=== PATIENT | female | born 1940 | race Caucasian/White ===

== ENCOUNTER 2025-01-19 14:11 | Inpatient (IN) ==
[2025-01-19 15:24] LABS: Hematocrit (blood only) 39.3 % (37.0-47.0); Hemoglobin 12.8 g/dL (12.0-16.0); Mean Corpuscular Hemoglobin 29.3 pg (25.0-34.0); Mean Corpuscular Volume 89.9 fL (80.0-100.0); Platelet Count 249 K/uL (130-400); RDW Standard Deviation 48.9 fL (36.4-46.3); Red Blood Count 4.37 M/uL (4.20-5.40); White Blood Count 13.78 K/ul (4.8-10.8)
--- NOTE | 2025-01-19 15:32 | XRay Report ---
SINGLE VIEW CHEST CLINICAL HISTORY: Dyspnea FINDINGS: An AP upright chest radiograph is compared to study dated 01/09/2025. The heart is enlarged . There is prominence of the pulmonary vasculature. Chronic interstitial thickening is similar to pre vious. Scarring/atelectasis is seen at the lung bases. No airspace consolidation or large pleural eff usion is identified. No pneumothorax is seen. The skeletal structures are osteopenic. The bony thorax is grossly intact. IMPRESSION: 1. Cardiomegaly with prominence of the pulmonary vasculature. Correlate clinically for evidence of fl uid overload/congestive change. 2. No airspace consolidation or pleural effusion is seen. ACT 112: Negative or not required by law. Electronically signed by: Zak Blake M.D. 01/19/2025 3:31 PM
[2025-01-19 15:42] LABS: Alanine Aminotransferase 30 U/L (7-52); Albumin Globulin Ratio 1.2 (0.9-2); Albumin Level 3.8 gm/dl (3.4-5.0); Alkaline Phosphatase 53 U/L (34-104); Anion Gap 8 (3-11); Bilirubin,Total 0.9 mg/dl (0.2-1.0); Blood Urea Nitrogen 32 mg/dl (6-23); Calcium 9.7 mg/dl (8.6-10.3); Carbon Dioxide 21 mmol/L (21-32); Chloride 107 mmol/L (98-107); Globulin 3.3 gm/dl (2.5-4.0); Glucose 107 mg/dl (70-99(Fasting)); Magnesium 2.1 mg/dl (1.7-2.4); Potassium 5.4 mmol/L (3.5-5.1); Sodium 136 mmol/L (136-145); Total Protein 7.1 gm/dl (6.0-8.3)
[2025-01-19 15:50] LABS: Immature Granulocytes # (auto) 0.08 K/uL (0.01-0.20); Immature Granulocytes % (auto) 0.6 %; Polychromasia 1+
[2025-01-19 16:15] LABS: Chlamydia pneumoniae PCR Not Detected (NotDetected); Coronavirus 229E PCR Not Detected (NotDetected); Coronavirus CoV-2 (COVID19)PCR Not Detected (NotDetected); Coronavirus HKU1 PCR Not Detected (NotDetected); Coronavirus NL63 PCR Not Detected (NotDetected); Coronavirus OC43PCR Not Detected (NotDetected); Human Metapneumovirus PCR Not Detected (NotDetected); Parainfluenza Virus 1 PCR Not Detected (NotDetected); Parainfluenza Virus 2 PCR Not Detected (NotDetected); Parainfluenza Virus 3 PCR Not Detected (NotDetected); Parainfluenza Virus 4 PCR Not Detected (NotDetected); Respiratory Syncytial VirusPCR Not Detected (NotDetected); Rhinovirus/Enterovirus PCR Not Detected (NotDetected)
--- NOTE | 2025-01-19 16:34 | Emergency Department Note ---
Impression & Plan Acute dyspnea, CHF exacerbation, Acute hyperkalemia, GALINA (acute kidney injury), Generalized weakness ED Provider Note HISTORY OF PRESENT ILLNESS: Patient is an 84-year-old female presenting with shortness of breath and generalized weakness. Patient reports that for the last few days she has been having Pressly worsening shortness of breath, most notably with exertion. She reports that she is unable to take more than a few steps at a time before she has to stop because she becomes so winded. States that she has been very tired and feeling rundown. Reports she is unable to stand up for too long because her legs "start feeling like noodles." She states she also gets very dizzy and lightheaded like she is going to pass out. Denies any chest pain. She denies any notable fevers or chills. She does report some dysuria and is concerned she might be having a UTI. She states that she was cardioverted yesterday and does not feel any better. ROS: as above PHYSICAL EXAM: Constitutional: Patient appears in no acute distress. HENT: Head: Normocephalic and atraumatic. Eyes: EOMI, PERRL Mouth/Throat: Mucous membranes moist. Neck: Trachea midline. Neck supple. Cardiovascular: Tachycardic with irregularly irregular rhythm. No murmurs, rubs or gallops. Intact distal pulses. Pulmonary/Chest: No respiratory distress. Breath sounds clear and equal bilaterally. No wheezes or rales. Conversationally dyspneic. Abdominal: Abdomen soft, no tenderness, rebound or guarding. Musculoskeletal: No edema, tenderness or deformity noted. Skin: Warm and dry. No rash, erythema, pallor or cyanosis Psychiatric: Appropriate mood and affect for situation. Neurological: Alert and keenly responsive. CN II-XII grossly intact, moving all extremities equally and fully. MDM: - Vitals signs showed tachycardia - History obtained via patient. History as above. - Chronic conditions affecting care: HTN; HLD; hypothyroidism; paroxysmal Afib - Differential diagnoses include, but are not limited to: Congestive heart failure; acute coronary syndrome; COPD/asthma exacerbation; pulmonary edema; pulmonary embolism; pneumonia; pneumothorax; viral syndrome - Order placed for continuous cardiac monitoring. At this time, monitor showed rate of 99 bpm with irregular rhythm, per my interpretation. - External medical records reviewed. Cardioversion note from 01/18/2025 was reviewed. Patient was cardioverted due to persistent A-fib. - EKG image interpreted by myself showed atrial fibrillation. Rate 103 bpm. QT 326. No acute ischemic changes. - Laboratory workup interpreted by myself showed leukocytosis (WBC 13.78) with neutrophil predominance; hyperkalemia (K 5.4); GALINA (Cr 1.35); elevated BNP (1142); slightly elevated AST (44) - Viral respiratory panel negative - CXR reviewed by myself shows pulmonary vascular congestion, per my interpretation. - Given 20 mg IV lasix. - Discussion was had with nurse case manager about patient's case and need for admission - Hospitalist consulted for admission - Patient admitted to [facility] service for further evaluation and management. ASSESSMENT AND PLAN: Diagnosis: Acute dyspnea; CHF exacerbation; GALINA; acute hyperkalemia; generalized weakness Plan: admit Past Med/Surg History Problem List (Updated 01/19/25 @ 17:07 by Jonelle Beard MD) Generalized weakness (Acute) GALINA (acute kidney injury) (Acute) Acute hyperkalemia (Acute) CHF exacerbation (Acute) Acute dyspnea (Acute) Cardiomyopathy Chest pain (Acute) Chronic diarrhea Hypersomnia Insomnia Neck mass Hemorrhoids Dehydration Urinary symptom or sign Viral gastroenteritis Hypokalemia Paroxysmal A-fib Pain of left calf On warfarin for atrial fibrillation Family history of coronary artery disease in sister Dyspnea on exertion Encounter for examination following treatment at hospital Fatigue Urinary tract infection Vaginal itching COVID-19 (Acute) Osteoporosis Depression with anxiety Routine health maintenance Hypothyroid Hyperlipidemia HTN (hypertension), benign Medical History Slow to wake up after anesthesia Neck mass "just a little lump on my neck, dr plans to keep an eye on it" Fatigue "tired all the time" History of COVID-19 2021, no residual symptoms Hx of diarrhea "wears pull-ups all the time due to her diarrhea" Paroxysmal atrial fibrillation f/u mn cardio Osteoporosis On warfarin for atrial fibrillation Hypothyroidism Hx of hypokalemia Hx of insomnia HLD (hyperlipidemia) HTN (hypertension), benign Hx of hemorrhoids Depression with anxiety H/O chronic kidney disease H/O diabetes mellitus diet controlled; "when she was ill with sepsis she had to be on insulin while in hospital, but was not sent home with it, diet controlled since" H/O sepsis age 79, hospitalized while living in [place], 2/2 to UTI Surgical History Hx of oral surgery many years ago, "just one one tooth only" Hx of colonoscopy (2005) Hx of bilateral cataract extraction History of tonsillectomy and adenoidectomy H/O hand surgery H/O foot surgery Hx of cholecystectomy Hx of appendectomy Family History Brother Diabetes Hypertension Myocardial infarction Mother Hypertension Myocardial infarction Father Hypertension Myocardial infarction Brother Myocardial infarction Sister Myocardial infarction Sister Myocardial infarction Denies family history of Ovarian cancer Prostate cancer Breast cancer Colorectal cancer Social History Smoking Status: Former smoker Tobacco Type: Cigarettes Age Started Using Tobacco: 23; Age Quit Using Tobacco: 40; packs per day: 1; Second Hand Exposure: No; Do You Dip or Chew Tobacco: No; Hx Alcohol Use: No Hx Substance Use: No Preferred Language: Frisian Communication Ability: Effective Visual Impairment: Limited Hearing Ability: Normal Seal Skinner Required: No Beliefs That Will Affect Care: None marital status: / Current Living Situation: Alone current occupational status: retired How many Children do You have: 2 Feels Safe at Home: Yes Childhood Exposure to Second-Hand Smoke: No Diet: regular caffeine: Yes (tea and diet coke) during the past year weight has: remained stable Dental Care, Regularly: No Physical Activity Frequency: 1-2 Times per Week Physical Activity Frequency Comment: walking daily Seatbelt Use: always Sunscreen Use: No Do you think of yourself as: straight/heterosexual Sexual Activity: has been sexually active, but not for at least 12 months Gender Identity: Female Assistive Devices: Denture - Upper and Glasses Allergies Allergies Allergy/AdvReac Type Severity Reaction Status Date / Time Barbiturates Allergy Unknown Unknown Verified 01/15/25 10:32 meprobamate Allergy Unknown Verified 01/15/25 10:32 Home Meds Home Medications Medication Instructions Recorded Confirmed ferrous sulfate 325 mg (65 mg 325 mg PO QAM 06/29/24 01/19/25 iron) tablet cholecalciferol (vitamin D3) 25 25 mcg PO QAM 11/01/24 01/19/25 mcg (1,000 unit) capsule (Vitamin D3) cyanocobalamin (vitamin B-12) 5,000 mcg sublingual QAM 11/01/24 01/19/25 5,000 mcg sublingual tablet (Vitamin B-12) levothyroxine 112 mcg tablet 112 mcg PO QAM 11/01/24 01/19/25 paroxetine HCl 10 mg tablet 10 mg PO QAM 11/01/24 01/19/25 Previous Rx's Medication Instructions Recorded chlorthalidone 50 mg tablet 50 mg PO 2XWK #30 tabs 03/14/24 hydroxyzine HCl 10 mg tablet 10 mg PO HS PRN insomnia #30 tabs 10/17/24 melatonin 10 mg capsule 10 mg PO HS #90 caps 10/26/24 warfarin 2.5 mg tablet 2.5 mg PO .COMPLEX #36 tabs 10/26/24 warfarin 7.5 mg tablet 7.5 mg PO DAILY #90 tabs 10/26/24 alendronate 70 mg tablet 70 mg PO Q7D #12 tabs 11/20/24 furosemide 20 mg tablet 20 mg PO DAILY #7 tabs 01/09/25 metoprolol succinate 50 mg 50 mg PO DAILY #30 tabs 01/15/25 tablet,extended release 24 hr potassium chloride 20 mEq 40 meq (2 x 20 mEq) PO BID #360 01/15/25 tablet,extended release tabs Results & Data (ED) Vital Signs Vital Signs - 24 hr 01/19/25 14:17 01/19/25 16:13 01/19/25 16:13 Temperature 36.5 C Temperature Source Temporal Artery Scan Pulse Rate 94 H Pulse Rate [Finger] Respiratory Rate 18 Respiratory Effort / Characteristics Non-Labored Spontaneous Non-Labored Spontaneous Respiratory Depth Normal Respiratory Pattern Regular Blood Pressure 101/65 Blood Pressure [Left Arm] Blood Pressure Mean 77 Blood Pressure Mean [Left Arm] Blood Pressure Position Sitting Blood Pressure Position [Left Arm] Pulse Oximetry 96 95 Oxygen Delivery Method Room Air Room Air Room Air Sepsis Recent Fever Within 48 Hours No Sepsis New/Unexplained Change in Mental Status No Sepsis Action Taken by Nursing No Action Required 01/19/25 16:15 01/19/25 16:39 Temperature Temperature Source Pulse Rate 99 H Pulse Rate [Finger] 123 H Respiratory Rate 22 Respiratory Effort / Characteristics Non-Labored Spontaneous Respiratory Depth Normal Respiratory Pattern Regular Blood Pressure Blood Pressure [Left Arm] 106/82 Blood Pressure Mean Blood Pressure Mean [Left Arm] 90 Blood Pressure Position Blood Pressure Position [Left Arm] Sitting Pulse Oximetry 95 Oxygen Delivery Method Room Air Sepsis Recent Fever Within 48 Hours Sepsis New/Unexplained Change in Mental Status Sepsis Action Taken by Nursing Laboratory Data 01/19/25 15:05 01/19/25 15:05 Lab Results 01/19/25 01/19/25 Range/Units 15:05 16:20 WBC 13.78 H (4.8-10.8) K/ul RBC 4.37 (4.20-5.40) M/uL Hgb 12.8 (12.0-16.0) g/dL Hct 39.3 (37.0-47.0) % MCV 89.9 (80.0-100.0) fL MCH 29.3 (25.0-34.0) pg MCHC 32.6 (32.0-36.0) g/dL RDW Std Deviation 48.9 H (36.4-46.3) fL RDW Coeff of Kunal 14.8 H (11.5-14.5) % Plt Count 249 (130-400) K/uL MPV 10.5 (9.4-12.4) fL Immature Gran % (Auto) 0.6 % Neut % (Auto) 52.8 % Lymph % (Auto) 38.2 % White % (Auto) 7.1 % Eos % (Auto) 0.6 % Baso % (Auto) 0.7 % Neut # (Auto) 7.27 H (1.40-6.50) K/uL Lymph # (Auto) 5.27 H (1.20-3.40) K/uL White # (Auto) 0.98 H (0.11-0.59) K/uL Eos # (Auto) 0.08 (0.00-0.50) K/uL Baso # (Auto) 0.10 (0.00-0.20) K/uL Immature Gran # (Auto) 0.08 (0.01-0.20) K/uL Polychromasia 1+ Sodium 136 (136-145) mmol/L Potassium 5.4 H (3.5-5.1) mmol/L Chloride 107 (98-107) mmol/L Carbon Dioxide 21 (21-32) mmol/L Anion Gap 8 (3-11) BUN 32 H (6-23) mg/dl Creatinine 1.35 H (0.6-1.2) mg/dl Est Cr Clr Drug Dosing Not Reportable eGFR 38.99 BUN/Creatinine Ratio 23.7 H (10-20) Glucose 107 H (70-99(Fasting)) mg/dl Calcium 9.7 (8.6-10.3) mg/dl Magnesium 2.1 (1.7-2.4) mg/dl Total Bilirubin 0.9 (0.2-1.0) mg/dl AST 44 H (13-39) U/L ALT 30 (7-52) U/L Alkaline Phosphatase 53 (34-104) U/L B-Natriuretic Peptide 1142 H (0-100) pg/ml Total Protein 7.1 (6.0-8.3) gm/dl Albumin 3.8 (3.4-5.0) gm/dl Globulin 3.3 (2.5-4.0) gm/dl Albumin/Globulin Ratio 1.2 (0.9-2) Adenovirus (PCR) Not Detected (NotDetected) B. pertussis DNA (PCR) Not Detected (NotDetected) B.parapertussis DNA PCR Not Detected (NotDetected) C. pneumoniae DNA (PCR) Not Detected (NotDetected) Coronavirus OC43 (PCR) Not Detected (NotDetected) Coronavirus HKU1 (PCR) Not Detected (NotDetected) Coronavirus 229E (PCR) Not Detected (NotDetected) SARS-CoV-2 (PCR) Not Detected (NotDetected) Coronavirus NL63 (PCR) Not Detected (NotDetected) Human Metapneumovir PCR Not Detected (NotDetected) Influenza Type A (PCR) Not Detected (NotDetected) Influenza Type B (PCR) Not Detected (NotDetected) M. pneumoniae (PCR) Not Detected (NotDetected) Parainfluenza 1 (PCR) Not Detected (NotDetected) Parainfluenza 2 (PCR) Not Detected (NotDetected) Parainfluenza 3 (PCR) Not Detected (NotDetected) Parainfluenza 4 (PCR) Not Detected (NotDetected) RSV (PCR) Not Detected (NotDetected) Entero/Rhino (PCR) Not Detected (NotDetected) Imaging Data Radiologist's Impression: Chest X-Ray 01/19/25 14:21 SINGLE VIEW CHEST CLINICAL HISTORY: Dyspnea FINDINGS: An AP upright chest radiograph is compared to study dated 01/09/2025. The heart is enlarged. There is prominence of the pulmonary vasculature. Chronic interstitial thickening is similar to previous. Scarring/atelectasis is seen at the lung bases. No airspace consolidation or large pleural effusion is identified. No pneumothorax is seen. The skeletal structures are osteopenic. The bony thorax is grossly intact. IMPRESSION: 1. Cardiomegaly with prominence of the pulmonary vasculature. Correlate clinically for evidence of fluid overload/congestive change. 2. No airspace consolidation or pleural effusion is seen. ACT 112: Negative or not required by law. Electronically signed by: Zak Blake M.D. 01/19/2025 3:31 PM Discharge Plan Visit Data Chief Complaint: Shortness of Breath/Dyspnea Stated Complaint: SOB, WEAKNESS, DIZZY ED Provider: Jonelle Beard Discharge Problem: Acute dyspnea, CHF exacerbation, Acute hyperkalemia, GALINA (acute kidney injury), Generalized weakness Patient Disposition: Admitted As Inpatient Condition: Fair Forms Stand Alone Forms: [facility] Prescriptions Prescriptions: No Action melatonin 10 mg capsule 10 mg PO HS Qty: 90 1RF warfarin 2.5 mg tablet 2.5 mg PO .COMPLEX Qty: 36 0RF Hold Instructions: Home Medication placed on hold at Doctor's office Protocol: Dose Management Condition: Wednesday Dose/Route: 10 mg Instruction: 1 x 2.5 mg tablet, 1 x 7.5 mg tablet Condition: Wednesday Dose/Route: 7.5 mg Instruction: 1 x 7.5 mg tablet Condition: Wednesday Dose/Route: 7.5 mg Instruction: 1 x 7.5 mg tablet Condition: Wednesday Dose/Route: 7.5 mg Instruction: 1 x 7.5 mg tablet Condition: Dose/Route: 7.5 mg Instruction: 1 x 7.5 mg tablet Condition: Wednesday Dose/Route: 10 mg Instruction: 1 x 2.5 mg tablet, 1 x 7.5 mg tablet Condition: Wednesday Dose/Route: 7.5 mg Instruction: 1 x 7.5 mg tablet Protocol Text: Adjustment Start Date: Wednesday11/15/24 INR Value: 1.3 INR Date: 11/13/24 Recheck Date: 12/15/24 Rx Instructions: Wednesday (along with 7.5 mg pill). warfarin 7.5 mg tablet 7.5 mg PO DAILY Qty: 90 5RF Protocol: Dose Management Condition: Wednesday Dose/Route: 10 mg Instruction: 1 x 2.5 mg tablet, 1 x 7.5 mg tablet Condition: Wednesday Dose/Route: 7.5 mg Instruction: 1 x 7.5 mg tablet Condition: Wednesday Dose/Route: 7.5 mg Instruction: 1 x 7.5 mg tablet Condition: Wednesday Dose/Route: 7.5 mg Instruction: 1 x 7.5 mg tablet Condition: Dose/Route: 7.5 mg Instruction: 1 x 7.5 mg tablet Condition: Wednesday Dose/Route: 10 mg Instruction: 1 x 2.5 mg tablet, 1 x 7.5 mg tablet Condition: Wednesday Dose/Route: 7.5 mg Instruction: 1 x 7.5 mg tablet Protocol Text: Adjustment Start Date: Wednesday11/15/24 INR Value: 1.3 INR Date: 11/13/24 Recheck Date: 12/15/24 alendronate 70 mg tablet 70 mg PO Q7D Qty: 12 1RF Rx Instructions: On Wednesday furosemide 20 mg tablet 20 mg PO DAILY Qty: 7 0RF chlorthalidone 50 mg tablet 50 mg PO 2XWK Qty: 30 1RF Rx Instructions: On Wednesday and Wednesday metoprolol succinate 50 mg tablet extended release 24 hr 50 mg PO DAILY Qty: 30 2RF potassium chloride 20 mEq tablet extended release 40 meq PO BID Qty: 360 1RF ferrous sulfate 325 mg (65 mg iron) tablet 325 mg PO QAM hydroxyzine HCl 10 mg tablet 10 mg PO HS PRN (Reason: insomnia) Qty: 30 1RF cholecalciferol (vitamin D3) [Vitamin D3] 25 mcg (1,000 unit) Capsule 25 mcg PO QAM cyanocobalamin (vitamin B-12) [Vitamin B-12] 5,000 mcg Tablet, Sublingual 5,000 mcg SUBLINGUAL QAM paroxetine HCl 10 mg tablet 10 mg PO QAM levothyroxine 112 mcg tablet 112 mcg PO QAM Referrals Referrals: Aarti Hall MD [Primary Care Provider] -
[2025-01-19] MEDS: FUROSEMIDE INJ 20 MG/2 ML VIAL IV ONE (17:20)
[2025-01-19 17:55] LABS: INR 3.7 (0.9-1.1); Prothrombin Time 36.5 Seconds (9.0-12.0)
[2025-01-19 18:16] LABS: Appearance Urine Cloudy (Clear); Bacteria Urine Automated 4+ (None Seen); Epithelial Cell Urine Auto 0-2 /hpf (0-2); Glucose Urine UA Negative (Negative); WBC Urine Automated >50 /hpf (0-5)
--- NOTE | 2025-01-19 18:17 | History & Physical Report ---
Date of Service January 19, 2025 Assessment & Plan (1) Generalized weakness: (2) GALINA (acute kidney injury): (3) Acute hyperkalemia: (4) Acute dyspnea: (5) Persistent atrial fibrillation: Plan Patient is a 84 y/o F PMHx persistent atrial fibrillation warfarin, CHF, osteopo rosis, HTN, HLD, and hypothyroidism presented to [facility] ED this afternoon for evaluation of shortness of breath and generalized weakness. States these symptoms have been ongoing since November, but noticed a significant change after her cardioversion yesterday. She is admitted to med/tele for evaluation of shortness of breath and generalized weakness possibly due to persistent atrial w/ poor rate control. #shortness of breath/generalized weakness - On admission exam, patient tachycardiac, tachypneic saturating well on RA. BP wnl. Afebrile. WBC 13.78. H&H 12.8 & 39.3. PT 36.5. INR 3.7. Na 136. K 5.4. Cr 1.35 (baseline 0.9-1.0). BNP 1142. EKG with evidence for atrial fibrillation. CXR with cardiomegaly with prominence of pulmonary vasculature, fluid overload vs congestive change. No airspace consolidation or pleural effusion is seen. When compared to CXR 01/09/25, mostly unchanged. Due to concern for hyperkalemia and fluid overload, was given furosemide 20mg IV in ED. - presentation likely due to poorly rate controlled a. fib. Was successfully cardioverted yesterday 01/18/25 to R with rate controlled. - does not appear fluid overloaded on exam - no pedal edema, lungs CTA BL. Hold on additional diuresis at this time. Will reassess volume status in AM - on metoprolol 50mg po daily - lopressor 5mg IV q4h prh - strict I&Os - heart healthy diet - BMP, Mg qAM #atrial fibrillation - s/p cardioversion yesterday 01/18/[address] Graves - EKG back in a. fib - anticoagulated with warfarin 7.5mg daily - hold for supratherapeutic INR 3.7. Recheck PT/INR in AM - continuous cardiac monitoring - metoprolol as above #GALINA/hyperkalemia - Cr 1.35 (baseline 0.9-1.0) - possibly due to fluid overload? given furosemide 20mg IV in ED - will hold on additional diuresis until AM assessment. - K+ on admission 5.4 - taking potassium chloride 40mEq po bid - hold #leukocytosis - WBC 13.5 on admission w/o clear source of infection - patient afebrile. CXR w/o evidence of consolidation/pneumonia - denies urinary sx - UA 2+ leukocyte esterase, 4+ bacteria, nitrite positive, WBC >50s. - CBC qAM #HTN - continue metoprolol as above #hypothyroidism - last TSH 01/08/25 - 1.35 - levothyroxine 112mcg po qAM #osteoporosis - alendronate 70mg po q7d #anxiety/depression - paroxetine 10mg po qAM - hydroxyzine 10mg po hs prn Code: full code DVT: SCDs - warfarin on hold due to supratherapeutic INR Dispo: med/tele History of Present Illness Chief Complaint: shortness of breath generalized weakness Primary Care Provider: Aarti Hall MD Talia Aguillon is a 84 y/o F PMHx persistent atrial fibrillation warfarin, CHF, osteoporosis, HTN, HLD, and hypothyroidism presented to [facility] ED this afternoon for evaluation of shortness of breath and generalized weakness. States these symptoms have been ongoing since November, but noticed a significant change after her cardioversion yesterday. Reports this morning, having dyspnea while making breakfast and walking around her house. Symptoms are associated with lightheadedness and dizziness. Sleeps at home in bed with one "thick" pillow, because it is "uncomfortable to lay completely flat." Endorses having difficulty sleeping due to these symptoms in recent weeks. Denies chest pain, N/V/D, abdominal pain. Denies any changes to her diet or increased salt intake. In ED, patient tachycardiac, tachypneic saturating well on RA. BP wnl. Afebrile. WBC 13.78. H&H 12.8 & 39.3. PT 36.5. INR 3.7. Na 136. K 5.4. Cr 1.35 (baseline 0.9- 1.0). BNP 1142. EKG with evidence for atrial fibrillation. CXR with cardiomegaly with prominence of pulmonary vasculature, fluid overload vs congestive change. No airspace consolidation or pleural effusion is seen. When compared to CXR 01/09/25, mostly unchanged. Due to concern for hyperkalemia and fluid overload, was given furosemide 20mg IV in ED. She is being admitted to med/tele for evaluation of shortness of breath and generalized weakness possibly in the setting persistent afib with poor rate control. Allergies Allergy/AdvReac Type Severity Reaction Status Date / Time Barbiturates Allergy Unknown Unknown Verified 01/15/25 10:32 meprobamate Allergy Unknown Verified 01/15/25 10:32 Home Medications Medication Instructions Recorded Confirmed Type chlorthalidone 50 mg tablet 50 mg PO 2XWK #30 tabs 03/14/24 01/19/25 Rx ferrous sulfate 325 mg (65 mg 325 mg PO QAM 06/29/24 01/19/25 History iron) tablet hydroxyzine HCl 10 mg tablet 10 mg PO HS PRN insomnia #30 tabs 10/17/24 01/19/25 Rx melatonin 10 mg capsule 10 mg PO HS #90 caps 10/26/24 01/19/25 Rx warfarin 2.5 mg tablet 2.5 mg PO .COMPLEX #36 tabs 10/26/24 01/19/25 Rx warfarin 7.5 mg tablet 7.5 mg PO DAILY #90 tabs 10/26/24 01/19/25 Rx cholecalciferol (vitamin D3) 25 25 mcg PO QAM 11/01/24 01/19/25 History mcg (1,000 unit) capsule (Vitamin D3) cyanocobalamin (vitamin B-12) 5,000 mcg sublingual QAM 11/01/24 01/19/25 History 5,000 mcg sublingual tablet (Vitamin B-12) levothyroxine 112 mcg tablet 112 mcg PO QAM 11/01/24 01/19/25 History paroxetine HCl 10 mg tablet 10 mg PO QAM 11/01/24 01/19/25 History alendronate 70 mg tablet 70 mg PO Q7D #12 tabs 11/20/24 01/19/25 Rx furosemide 20 mg tablet 20 mg PO DAILY #7 tabs 01/09/25 01/19/25 Rx metoprolol succinate 50 mg 50 mg PO DAILY #30 tabs 01/15/25 01/19/25 Rx tablet,extended release 24 hr potassium chloride 20 mEq 40 meq (2 x 20 mEq) PO BID #360 01/15/25 01/19/25 Rx tablet,extended release tabs Past Med/Surg History Problem List (Updated 01/19/25 @ 18:44 by Marisol Mccoy DO) Persistent atrial fibrillation Generalized weakness (Acute) GALINA (acute kidney injury) (Acute) Acute hyperkalemia (Acute) CHF exacerbation (Acute) Acute dyspnea (Acute) Cardiomyopathy Chest pain (Acute) Chronic diarrhea Hypersomnia Insomnia Neck mass Hemorrhoids Dehydration Urinary symptom or sign Viral gastroenteritis Hypokalemia Paroxysmal A-fib Pain of left calf On warfarin for atrial fibrillation Family history of coronary artery disease in sister Dyspnea on exertion Encounter for examination following treatment at hospital Fatigue Urinary tract infection Vaginal itching COVID-19 (Acute) Osteoporosis Depression with anxiety Routine health maintenance Hypothyroid Hyperlipidemia HTN (hypertension), benign Medical History Slow to wake up after anesthesia Neck mass "just a little lump on my neck, dr plans to keep an eye on it" Fatigue "tired all the time" History of COVID-19 2021, no residual symptoms Hx of diarrhea "wears pull-ups all the time due to her diarrhea" Paroxysmal atrial fibrillation f/u mn cardio Osteoporosis On warfarin for atrial fibrillation Hypothyroidism Hx of hypokalemia Hx of insomnia HLD (hyperlipidemia) HTN (hypertension), benign Hx of hemorrhoids Depression with anxiety H/O chronic kidney disease H/O diabetes mellitus diet controlled; "when she was ill with sepsis she had to be on insulin while in hospital, but was not sent home with it, diet controlled since" H/O sepsis age 79, hospitalized while living in [place], 2/2 to UTI Surgical History Hx of oral surgery many years ago, "just one one tooth only" Hx of colonoscopy (2005) Hx of bilateral cataract extraction History of tonsillectomy and adenoidectomy H/O hand surgery H/O foot surgery Hx of cholecystectomy Hx of appendectomy Family History Brother Diabetes Hypertension Myocardial infarction Mother Hypertension Myocardial infarction Father Hypertension Myocardial infarction Brother Myocardial infarction Sister Myocardial infarction Sister Myocardial infarction Denies family history of Ovarian cancer Prostate cancer Breast cancer Colorectal cancer Social History Smoking Status: Former smoker Tobacco Type: Cigarettes Age Started Using Tobacco: 23; Age Quit Using Tobacco: 40; packs per day: 1; Second Hand Exposure: No; Do You Dip or Chew Tobacco: No; Hx Alcohol Use: No Hx Substance Use: No Preferred Language: Turkish Communication Ability: Effective Visual Impairment: Limited Hearing Ability: Normal Pear Picker Required: No Beliefs That Will Affect Care: None marital status: / Current Living Situation: Alone current occupational status: retired How many Children do You have: 2 Feels Safe at Home: Yes Childhood Exposure to Second-Hand Smoke: No Diet: regular caffeine: Yes (tea and diet coke) during the past year weight has: remained stable Dental Care, Regularly: No Physical Activity Frequency: 1-2 Times per Week Physical Activity Frequency Comment: walking daily Seatbelt Use: always Sunscreen Use: No Do you think of yourself as: straight/heterosexual Sexual Activity: has been sexually active, but not for at least 12 months Gender Identity: Female Assistive Devices: Denture - Upper and Glasses Physical Exam Physical Exam: GENERAL APPEARANCE: uncomfortable, but non-toxic appearing female, alert, awake, no acute distress NEURO: Alert and oriented x3, no focal neurologic deficits, moving all extremities w/o deficit EENT: Sclera anicteric, conjunctiva pink. Oral mucosa moist and pink. . CARDIAC: tachycardiac, irregularly irregular within w/o murmur or gallops. Distal pulses are intact. LUNGS: Clear to auscultation without rales, rhonchi, wheezing or diminished breath sounds. Increased work of breathing w/o accessory muscle usage. Conversational dyspnea. ABDOMEN: Positive bowel sounds. Soft, nondistended, nontender. No guarding or rebound. EXTREMITIES: No significant deformity or joint abnormality. No edema, cyanosis o r clubbing. Peripheral pulses intact. Cheko sign positive RLE, without edema or erythema SKIN: warm, pink, dry Results & Data Results & Data Vital Signs (Past 12 Hours) Vital Signs Temp Pulse Pulse Resp BP BP Pulse Ox 01/19/25 17:27 96 01/19/25 17:23 104 H 26 H 117/99 95 01/19/25 16:39 99 H 01/19/25 16:15 123 H 22 106/82 95 01/19/25 16:13 95 01/19/25 16:13 01/19/25 14:17 36.5 C 94 H 18 101/65 96 O2 Del Method 01/19/25 17:27 Room Air 01/19/25 17:23 Room Air 01/19/25 16:39 01/19/25 16:15 Room Air 01/19/25 16:13 Room Air 01/19/25 16:13 Room Air 01/19/25 14:17 Room Air Supervising Physician Co-Signing Physician Notes 84yo F with a history of afib, chf who presented to ER for dyspnea/weakness evaluation. Symptoms present last 2 months, but they got worse after her cardioversion yesterday. +dyspnea this morning with breakfast and will small amounts of exertion. +Lightheadedness/dizziness with exertion. Endorses orthopnea. No chest pain, chest pressure. No bleeding. No dietary indescretion/leg swelling Afebrile INR 3.7. Warfarin held, trend daily. Cr 1.35, elevated from baseline BNP elevated from baseline EKG: afib RVR, nonspecific t wave changes CXR similar to prior Recieved lasix 20mg x1 IV in the ER for concerns of CHF. Weight 78.5kg. Dry weight ~70-71kg. Daily standing weights. ?Dyspnea due to mild chf, bu tmore likely 2/2 recurrent afib with RVR. She is not overtly overloaded clinically, but has some congestion on CXR, and weight and BNP are up. She reports she has been taking Lasix as an outpatient and had around 10 pounds of weight gain recently, but does not feel that the Lasix has helped her pee like it did in the past. Already received diuretics, will trend BMP and response and adjust dosing as needed. Does have very slight JVD above the clavicle. No lower extremity edema. Low suspicion for PE given anticoagulat ion status, actually supratherapeutic. Warfarin held, INR trended daily. MTP 5mg IV q6h PRN for rate >130. Mg 2.1. She has no urinary symptoms. She reports she generally knows when she gets UTI because she gets itching burning and a strange feeling. She has not had any of this recently denies fever chills and sweats. She has a leukocytosis without a true left shift. Afebrile. Will continue monitoring, low threshold for antibiotics if she develops clinical UTI symptoms. She has not had a productive cough. Agree w/ above Resident Activity Tracking Resident Involvement: Resident Care Provided Care Provided: Adult Hospital Medicine
[2025-01-19] MEDS ORDERED: ACETAMINOPHEN 325 MG TAB PO PRN (21:26)
[2025-01-19] MEDS ORDERED: POLYETHYLENE (MIRALAX) 17 GM PACK PO PRN (21:26)
[2025-01-19] MEDS ORDERED: METOPROLOL TARTRATE 1 MG/ML VIAL IV PRN (21:26)
[2025-01-19] MEDS ORDERED: MELATONIN 3 MG TAB PO PRN (21:26)
[2025-01-19] MEDS ORDERED: ONDANSETRON INJ 2 MG/ML 2 ML VIAL IV PRN (21:26)
--- NOTE | 2025-01-19 22:40 | Electrocardiogram Report ---
Test Reason : Blood Pressure : */* mmHG Vent. Rate : 103 BPM Atrial Rate : * BPM P-R Int : * ms QRS Dur : 82 ms QT Int : 326 ms P-R-T Axes : * 0 -48 degrees QTcB Int : 427 ms Atrial fibrillation with rapid ventricular response Nonspecific T wave abnormality Abnormal ECG When compared with ECG of 18-Jan-2025 08:08, Atrial fibrillation has replaced Sinus rhythm Vent. rate has increased by 38 bpm Confirmed by James Juárez ([id number]) on 01/19/2025 10:40:24 PM Referred By: Confirmed By: James Juárez
[2025-01-20] MEDS: LEVOTHYROXINE SODIUM 112 MCG TABLET PO SCH (06:17)
[2025-01-20 06:39] LABS: Hematocrit (blood only) 35.7 % (37.0-47.0); Hemoglobin 12.1 g/dL (12.0-16.0); Mean Corpuscular Hemoglobin 30.0 pg (25.0-34.0); Mean Corpuscular Volume 88.4 fL (80.0-100.0); Platelet Count 214 K/uL (130-400); RDW Standard Deviation 47.0 fL (36.4-46.3); Red Blood Count 4.04 M/uL (4.20-5.40); White Blood Count 11.71 K/ul (4.8-10.8)
[2025-01-20 07:02] LABS: INR 2.9 (0.9-1.1); Prothrombin Time 28.7 Seconds (9.0-12.0)
[2025-01-20 07:22] LABS: Anion Gap 10.0 (3-11); Blood Urea Nitrogen 35.0 mg/dl (6-23); Calcium 9.4 mg/dl (8.6-10.3); Carbon Dioxide 22.0 mmol/L (21-32); Chloride 105.0 mmol/L (98-107); Creatinine Clr Calc Pharmacy 30.0 ml/min; Glucose 100.0 mg/dl (70-99(Fasting)); Immature Granulocytes # (auto) 0.06 K/uL (0.01-0.20); Immature Granulocytes % (auto) 0.5 %; Magnesium 1.9 mg/dl (1.7-2.4); Polychromasia 1+; Potassium 3.9 mmol/L (3.5-5.1); Sodium 137.0 mmol/L (136-145)
--- NOTE | 2025-01-20 08:48 | Hospitalist Progress Note ---
Date of Service January 20, 2025 Assessment & Plan (1) Generalized weakness: (2) GALINA (acute kidney injury): (3) Acute hyperkalemia: (4) Acute dyspnea: (5) Persistent atrial fibrillation: Plan Patient is a 84 y/o F PMHx persistent atrial fibrillation warfarin, CHF, osteoporosis, HTN, HLD, and hypothyroidism presented to [facility] ED for evaluation of shortness of breath and generalized weakness. States these symptoms have been ongoing since November, but noticed a significant change after her cardioversion yesterday. She is admitted to med/tele for evaluation of shortness of breath and generalized weakness possibly due to persistent atrial w/ poor rate control. #shortness of breath/generalized weakness #atrial fibrillation - On admission exam, patient tachycardiac, tachypneic saturating well on RA. BP wnl. Afebrile. WBC 13.78. H&H 12.8 & 39.3. PT 36.5. INR 3.7. Na 136. K 5.4. Cr 1.35 (baseline 0.9-1.0). BNP 1142. EKG with evidence for atrial fibrillation. CXR with cardiomegaly with prominence of pulmonary vasculature, fluid overload vs congestive change. No airspace consolidation or pleural effusion is seen. When compared to CXR 01/09/25, mostly unchanged. Due to concern for hyperkalemia and fluid overload, was given furosemide 20mg IV in ED. - presentation likely due to poorly rate controlled a. fib. Was successfully cardioverted yesterday 01/18/25 to R with rate controlled. - does not appear fluid overloaded on exam - no pedal edema, lungs CTA BL. Hold on additional diuresis at this time. - metoprolol succinate 75mg today for better rate control, will see how she responds clinically and consider dose adjustments tomorrow - restart warfarin 7.5mg qdaily for stroke prophylaxis as INR therapeutic today - lopressor 5mg IV q4h prh - strict I&Os - heart healthy diet - BMP, PT/INR qAM - cardiac monitoring - PT/OT eval #GALINA/hyperkalemia - Cr 1.35-->1.38 (baseline 0.9-1.0) - hold lasix - K+ on admission 5.4, today 3.9 - hold home KCl supplement - encourage PO intake #leukocytosis - WBC 13.5 on admission w/o clear source of infection - UA 2+ leukocyte esterase, 4+ bacteria, nitrite positive, WBC >100,000 - patient afebrile. CXR w/o evidence of consolidation/pneumonia - denies urinary sx - CBC qAM - will monitor for now #HTN - continue metoprolol as above #hypothyroidism - last TSH 01/08/25 - 1.35 - levothyroxine 112mcg po qAM #osteoporosis - alendronate 70mg po q7d #anxiety/depression - paroxetine 10mg po qAM - hydroxyzine 10mg po hs prn Code: full code DVT: warfarin Dispo: med/tele Admission and Anticipated Discharge Date Admission Date: January 19, 2025 Supervising Physician Co-Signing Physician Notes Patient seen and examined, chart reviewed, case discussed with Dr. Raza and I agree with the assessment and plan as above except as otherwise noted above. General: A&Ox3. NAD. Cooperative. HEENT: Atraumatic, normocephalic. ROGELIO. Pulm: Trace RLL crackles, otherwise CTAB A&P. -wheezes, -rales, -rhonchi. Symmetrical chest rise. Cardiac: irir, tachycardic. Radial pulses intact and symmetrical. All labs and images reviewed Seen at the bedside today. She is washing/cleaning up at time of visit. Feels like she is improving, but not yet at her baseline. No leg swelling. HR downtrending, not yet at goal. LIkely sx precipitated by rate related failure, improving. Metoprolol dose increased. Cr similar to prior. Pt reports brisk UOP, but was not measured last night. Strict I&Os and will void into a hat. Follow output and progression with rate control, diuresis as clinically indicated. Agree w/ above Subjective No overnight events. Pt feels like her breathing is better today. She has not been out of bed much and is unsure if her weakness has changed. Denies fever, chills, palpitations/flutters/skipped beats, N/V, abdominal pain, dysuria or other complaints. Pt seen at bedside again this afternoon. States she is tolerating the increase in metoprolol well without lightheadedness, dizziness, CP. She states that over the last few days she has been urinating less frequently but more volume with each urination. She notes less dribbling of urine than usual. Denies burning, stinging, increased urgency or frequency. Review of Systems Review of Systems: per HPI Physical Exam Physical Exam: GA: well groomed, well nourished, appears dyspneic. AAOx3 HEENT: head normocephalic, atraumatic. EOMI RESP: vesicular breath sounds b/l. No wheezes, rhonchi, or rales CARDIOVASCULAR: S1 and S2 heard. No murmurs, rubs, or gallops. Radial pulses 2+ irregularly irregular GI: no tenderness or masses felt to palpation. No CVA tenderness. MSK: no gross abnormalities or focal deficits SKIN: warm, dry, no edema PSYCH: appropriate mood and affect NEURO: no focal deficits. speech fluent Results & Data Results & Data Vital Signs (Past 12 Hours) Vital Signs Temp Pulse Pulse Resp BP Pulse Ox O2 Del Method 01/20/25 07:54 36.3 C L 110 H 16 122/76 95 Nasal Cannula 01/20/25 07:25 91 H 01/20/25 03:34 36.6 C 87 18 111/72 94 Nasal Cannula 01/19/25 22:10 Nasal Cannula 01/19/25 21:41 104 H 01/19/25 21:27 36.4 C L 107 H 20 105/69 95 Nasal Cannula O2 Flow Rate 01/20/25 07:54 1 01/20/25 07:25 01/20/25 03:34 2 01/19/25 22:10 2 01/19/25 21:41 01/19/25 21:27 2 Resident Activity Tracking Resident Involvement: Resident Care Provided Care Provided: Adult Hospital Medicine
[2025-01-20] MEDS: CHOLECALCIFEROL 25 MCG (1000 UNITS) TAB PO SCH (09:18)
[2025-01-20] MEDS: FERROUS SULFATE 325 MG TAB PO SCH (09:18)
[2025-01-20] MEDS: METOPROLOL SUCC 50MG EXT REL TAB PO SCH (09:18)
[2025-01-20] MEDS: CYANOCOBALAMIN (B-12) 2,500 MCG TABLET SL SCH (09:18)
[2025-01-20] MEDS: METOPROLOL SUCC 25MG EXT REL TAB PO STA (11:05)
[2025-01-20] MEDS: WARFARIN SOD 7.5 MG TAB PO SCH (17:16)
--- NOTE | 2025-01-21 07:32 | Hospitalist Progress Note ---
Date of Service January 21, 2025 Assessment & Plan (1) Generalized weakness: (2) GALINA (acute kidney injury): (3) Acute hyperkalemia: (4) Acute dyspnea: (5) Persistent atrial fibrillation: Plan Patient is a 84 y/o F PMHx persistent atrial fibrillation warfarin, CHF, osteoporosis, HTN, HLD, and hypothyroidism presented to [facility] ED for evaluation of shortness of breath and generalized weakness. States these symptoms have been ongoing since November, but noticed a significant change after her cardioversion yesterday. She is admitted to med/tele for evaluation of shortness of breath and generalized weakness possibly due to persistent atrial w/ poor rate control. #shortness of breath/generalized weakness #atrial fibrillation - On admission exam, patient tachycardiac, tachypneic saturating well on RA. BP wnl. Afebrile. WBC 13.78. H&H 12.8 & 39.3. PT 36.5. INR 3.7. Na 136. K 5.4. Cr 1.35 (baseline 0.9-1.0). BNP 1142. EKG with evidence for atrial fibrillation. CXR with cardiomegaly with prominence of pulmonary vasculature, fluid overload vs congestive change. No airspace consolidation or pleural effusion is seen. When compared to CXR 01/09/25, mostly unchanged. Due to concern for hyperkalemia and fluid overload, was given furosemide 20mg IV in ED. - presentation likely due to poorly rate controlled a. fib. Was successfully cardioverted yesterday 01/18/25 to R with rate controlled. - does not appear fluid overloaded on exam - no pedal edema, lungs CTA BL. - metoprolol succinate 75mg, tolerating well - warfarin 7.5mg qdaily for stroke prophylaxis as INR is currently therapeutic (supratherapeutic on admission) - strict I&Os - PT/OT eval - wean O2 with goal sats >90%, pt tachycardic when weaning so gave 20mg IV lasix today - BMP, PT/INR qAM - cardiac monitoring - lopressor 5mg IV q4h prh #GALINA/hyperkalemia - Cr 1.35-->1.38-->1.27 (baseline 0.9-1.0) - K+ on admission 5.4, today 3.7 - hold home KCl supplement - encourage PO intake #persistent leukocytosis - WBC 13.5 on admission w/o clear source of infection, today 11 - UA 2+ leukocyte esterase, 4+ bacteria, nitrite positive, WBC >100,000, E.coli - patient afebrile - denies urinary sx - repeat CXR - start 1g qdaily Rocephin, today 03/05 - CBC qAM #HTN - continue metoprolol as above #hypothyroidism - last TSH 01/08/25 - 1.35 - levothyroxine 112mcg po qAM #osteoporosis - alendronate 70mg po q7d #anxiety/depression - paroxetine 10mg po qAM - hydroxyzine 10mg po hs prn Code: full code DVT: warfarin Dispo: med/tele Admission and Anticipated Discharge Date Admission Date: January 19, 2025 Supervising Physician Co-Signing Physician Notes Patient seen and examined, chart reviewed, case discussed with Dr. Raza and I agree with the assessment and plan as above except as otherwise noted Labs and images reviewed He is seen at the bedside. She reports she feels great, and much better than she has previously. She does still remain on oxygen and does not have a home oxygen requirement. Not able to wean this down from 2.5, lungs are with trace crackles in the bases otherwise clear no wheezing. A-fib rate greatly improved. Around 100 before her medication, 801 100s after her morning metoprolol. Did have a run of tachycardia while ambulating to the bathroom. Her rate control is improved, still having some hypoxia and shortness of breath with crackles will further diurese with IV Lasix today. She also has a persistent leukocytosis. Given persistent leukocytosis, high colony counts of single agent and lack of contaminated culture with unclear provoking factor for her A-fib and rate related failure will treat. Agree as above Subjective No overnight events. Pt seen and examined this morning at beside. States her breathing and weakness have improved and almost feels at her baseline. She is adamant that her urination has improved and does not have any urinary issues like dysuria, urgency, and frequency. Denies fever, chills, CP, palpitations, or abdominal pain. Review of Systems Review of Systems: per HPI Physical Exam Physical Exam: GA: well groomed, well nourished, appears dyspneic. AAOx3 HEENT: head normocephalic, atraumatic. EOMI RESP: vesicular breath sounds b/l. No wheezes, rhonchi, or rales CARDIOVASCULAR: S1 and S2 heard. No murmurs, rubs, or gallops. Radial pulses 2+ irregularly irregular GI: no tenderness or masses felt to palpation. MSK: no gross abnormalities or focal deficits SKIN: warm, dry, no edema PSYCH: appropriate mood and affect NEURO: no focal deficits. speech fluent Results & Data Results & Data Vital Signs (Past 12 Hours) Vital Signs Temp Pulse Pulse Resp BP BP Pulse Ox 01/21/25 07:05 121 H 01/21/25 04:00 36.8 C 88 18 119/77 94 01/20/25 23:27 36.5 C 98 H 18 111/74 95 01/20/25 21:56 121 H 01/20/25 19:45 36.8 C 111 H 18 107/74 95 01/20/25 19:30 O2 Del Method O2 Flow Rate 01/21/25 07:05 01/21/25 04:00 Room Air 01/20/25 23:27 Nasal Cannula 2 01/20/25 21:56 01/20/25 19:45 Nasal Cannula 2 01/20/25 19:30 Nasal Cannula 1 Resident Activity Tracking Resident Involvement: Resident Care Provided Care Provided: Adult Hospital Medicine
[2025-01-21 08:13] LABS: Hematocrit (blood only) 35.8 % (37.0-47.0); Hemoglobin 12.1 g/dL (12.0-16.0); Immature Granulocytes # (auto) 0.07 K/uL (0.01-0.20); Immature Granulocytes % (auto) 0.6 %; Mean Corpuscular Hemoglobin 30.1 pg (25.0-34.0); Mean Corpuscular Volume 89.1 fL (80.0-100.0); Platelet Count 225 K/uL (130-400); RDW Standard Deviation 46.2 fL (36.4-46.3); Red Blood Count 4.02 M/uL (4.20-5.40); White Blood Count 11.03 K/ul (4.8-10.8)
[2025-01-21] MEDS: METOPROLOL SUCC 25MG EXT REL TAB PO ONE (08:32)
[2025-01-21 08:34] LABS: Anion Gap 9.0 (3-11); Blood Urea Nitrogen 38.0 mg/dl (6-23); Calcium 9.2 mg/dl (8.6-10.3); Carbon Dioxide 24.0 mmol/L (21-32); Chloride 103.0 mmol/L (98-107); Creatinine Clr Calc Pharmacy 32.4 ml/min; Potassium 3.7 mmol/L (3.5-5.1); Sodium 136.0 mmol/L (136-145)
[2025-01-21 08:40] LABS: INR 2.3 (0.9-1.1); Prothrombin Time 23.5 Seconds (9.0-12.0)
[2025-01-21] MEDS: cefTRIAXone SODIUM 1,000 MG/50 ML BAG IV SCH (10:47)
--- NOTE | 2025-01-21 10:47 | XRay Report ---
Exam: AP Portable Chest Exam reason: Shortness of breath Comparison: 01/19/2025 Technique: A single AP portable view of the chest was obtained Findings: The lungs are well-expanded. There is a coarsened appearance of the pulmonary interstitial markings. This is relatively improved when compared to the previous exam. There is stable mild cardiomegaly. There is no pneumothorax and no acute bony abnormalities are seen. Impression: 1. Coarse appearance of the pulmonary interstitial markings. This is likely related to chronic fibrosing lung changes. Note that cardiac failure could present with a similar appearance. 2. Stable mild cardiomegaly. Electronically signed by Sancho Ashraf 01-21-2025 10:47 AM
[2025-01-21] MEDS: FUROSEMIDE INJ 20 MG/2 ML VIAL IV ONE (10:54)
[2025-01-22 07:11] LABS: Hematocrit (blood only) 38.1 % (37.0-47.0); Hemoglobin 12.7 g/dL (12.0-16.0); Immature Granulocytes # (auto) 0.06 K/uL (0.01-0.20); Immature Granulocytes % (auto) 0.6 %; Mean Corpuscular Hemoglobin 29.7 pg (25.0-34.0); Mean Corpuscular Volume 89.0 fL (80.0-100.0); Platelet Count 222 K/uL (130-400); RDW Standard Deviation 46.3 fL (36.4-46.3); Red Blood Count 4.28 M/uL (4.20-5.40); White Blood Count 10.06 K/ul (4.8-10.8)
[2025-01-22 07:37] LABS: INR 2.4 (0.9-1.1); Prothrombin Time 23.8 Seconds (9.0-12.0)
[2025-01-22 07:39] LABS: Anion Gap 10.0 (3-11); Blood Urea Nitrogen 36.0 mg/dl (6-23); Calcium 9.3 mg/dl (8.6-10.3); Carbon Dioxide 27.0 mmol/L (21-32); Chloride 101.0 mmol/L (98-107); Creatinine Clr Calc Pharmacy 34.1 ml/min; Potassium 3.3 mmol/L (3.5-5.1); Sodium 138.0 mmol/L (136-145)
--- NOTE | 2025-01-22 07:46 | Hospitalist Progress Note ---
Date of Service January 22, 2025 Assessment & Plan (1) Generalized weakness: (2) GALINA (acute kidney injury): (3) Acute hyperkalemia: (4) Acute dyspnea: (5) Persistent atrial fibrillation: Plan Patient is a 84 y/o F PMHx persistent atrial fibrillation warfarin, CHF, osteoporosis, HTN, HLD, and hypothyroidism presented to [facility] for evaluation of shortness of breath and generalized weakness. States these symptoms have been ongoing since November, but noticed a significant change after her cardioversion yesterday. She is admitted to med/tele for evaluation of shortness of breath and generalized weakness possibly due to persistent atrial w/ poor rate control. #shortness of breath/generalized weakness #atrial fibrillation - On admission exam, patient tachycardiac, tachypneic saturating well on RA. BP wnl. Afebrile. WBC 13.78. H&H 12.8 & 39.3. PT 36.5. INR 3.7. Na 136. K 5.4. Cr 1.35 (baseline 0.9-1.0). BNP 1142. EKG with evidence for atrial fibrillation. CXR with cardiomegaly with prominence of pulmonary vasculature, fluid overload vs congestive change. No airspace consolidation or pleural effusion is seen. When compared to CXR 01/09/25, mostly unchanged. Due to concern for hyperkalemia and fluid overload, was given furosemide 20mg IV in ED. - presentation likely due to poorly rate controlled a. fib. Was successfully cardioverted yesterday 01/18/25 to R with rate controlled. - does not appear fluid overloaded on exam - no pedal edema, lungs CTA BL. - metoprolol succinate 75mg, tolerating well - warfarin 7.5mg qdaily for stroke prophylaxis as INR is currently therapeutic (supratherapeutic on admission) - strict I&Os - PT/OT eval - wean O2 with goal sats >90%, pt tachycardic when weaning so gave 20mg IV lasix today - BMP, PT/INR qAM - cardiac monitoring - lopressor 5mg IV q4h prh #GALINA/hyperkalemia - Cr 1.35-->1.38-->1.27 (baseline 0.9-1.0) - K+ on admission 5.4, today 3.7 - hold home KCl supplement - encourage PO intake #persistent leukocytosis - WBC 13.5 on admission w/o clear source of infection, today 11 - UA 2+ leukocyte esterase, 4+ bacteria, nitrite positive, WBC >100,000, E.coli - patient afebrile - denies urinary sx - repeat CXR - start 1g qdaily Rocephin, today 03/05 - CBC qAM #HTN - continue metoprolol as above #hypothyroidism - last TSH 01/08/25 - 1.35 - levothyroxine 112mcg po qAM #osteoporosis - alendronate 70mg po q7d #anxiety/depression - paroxetine 10mg po qAM - hydroxyzine 10mg po hs prn Code: full code DVT: warfarin Dispo: med/tele Admission and Anticipated Discharge Date Admission Date: January 19, 2025 Subjective No overnight events. Pt seen and examined this morning at beside. States her breathing and weakness have improved and almost feels at her baseline. She is adamant that her urination has improved and does not have any urinary issues like dysuria, urgency, and frequency. Denies fever, chills, CP, palpitations, or abdominal pain. Physical Exam Physical Exam: GA: well groomed, well nourished, appears dyspneic. AAOx3 HEENT: head normocephalic, atraumatic. EOMI RESP: vesicular breath sounds b/l. No wheezes, rhonchi, or rales CARDIOVASCULAR: S1 and S2 heard. No murmurs, rubs, or gallops. Radial pulses 2+ irregularly irregular GI: no tenderness or masses felt to palpation. MSK: no gross abnormalities or focal deficits SKIN: warm, dry, no edema PSYCH: appropriate mood and affect NEURO: no focal deficits. speech fluent Results & Data Results & Data Vital Signs (Past 12 Hours) Vital Signs Temp Pulse Pulse Pulse Resp BP Pulse Ox 01/22/25 07:09 81 01/22/25 03:51 36.4 C L 90 16 112/70 94 01/22/25 01:53 93 01/22/25 01:53 78 L 01/22/25 00:19 98 H 01/21/25 23:32 36.7 C 104 H 18 102/74 91 01/21/25 21:43 99 H O2 Del Method O2 Flow Rate 01/22/25 07:09 01/22/25 03:51 Nasal Cannula 1 01/22/25 01:53 Nasal Cannula 2 01/22/25 01:53 Nasal Cannula 1 01/22/25 00:19 01/21/25 23:32 Nasal Cannula 1 01/21/25 21:43
[2025-01-22 08:20] VITALS: RESP 18; TEMP 97.4
[2025-01-22] MEDS: METOPROLOL SUCC 25MG EXT REL TAB PO SCH (08:31)
[2025-01-22] MEDS: CHLORTHALIDONE 25 MG TAB PO SCH (08:33)
[2025-01-22] MEDS: ALENDRONATE SODIUM 70 MG TAB PO SCH (08:34)
[2025-01-22 11:44] VITALS: O2SAT 92
--- NOTE | 2025-01-22 12:09 | Discharge Summary ---
Date of Service January 22, 2025 Admission HPI Per Admitting Provider Talia Aguillon is a 84 y/o F PMHx persistent atrial fibrillation warfarin, CHF, osteoporosis, HTN, HLD, and hypothyroidism presented to [facility] ED this afternoon for evaluation of shortness of breath and generalized weakness. States these symptoms have been ongoing since November, but noticed a significant change after her cardioversion yesterday. Reports this morning, having dyspnea while making breakfast and walking around her house. Symptoms are associated with lightheadedness and dizziness. Sleeps at home in bed with one "thick" pillow, because it is "uncomfortable to lay completely flat." Endorses having difficulty sleeping due to these symptoms in recent weeks. Denies chest pain, N/V/D, abdominal pain. Denies any changes to her diet or increased salt intake. In ED, patient tachycardiac, tachypneic saturating well on RA. BP wnl. Afebrile. WBC 13.78. H&H 12.8 & 39.3. PT 36.5. INR 3.7. Na 136. K 5.4. Cr 1.35 (baseline 0.9- 1.0). BNP 1142. EKG with evidence for atrial fibrillation. CXR with cardiomegaly with prominence of pulmonary vasculature, fluid overload vs congestive change. No airspace consolidation or pleural effusion is seen. When compared to CXR 01/09/25, mostly unchanged. Due to concern for hyperkalemia and fluid overload, was given furosemide 20mg IV in ED. She is being admitted [facility] for evaluation of shortness of breath and generalized weakness possibly in the setting persistent afib with poor rate control. Principal Diagnosis uncontrolled atrial fibrillation Discharge Exam Gen: no acute distress, on room air Resp: clear to auscultation b/l, no w/r/R CV: borderline tachy irregular rhythm; no obvious m/r/g GI: no tenderness or masses felt to palpation. MSK: no LE edema observed, calves nontender to palpation Discharge Data Allergies Allergy/AdvReac Type Severity Reaction Status Date / Time Barbiturates Allergy Unknown Unknown Verified 01/15/25 10:32 meprobamate Allergy Unknown Verified 01/15/25 10:32 Consultations 01/19/25 17:07 ED Decision to Admit Stat Hospital Course (1) Generalized weakness: (2) Persistent atrial fibrillation: (3) Urinary tract infection: (4) GALINA (acute kidney injury): Plan Patient is a 84 y/o F PMHx persistent atrial fibrillation warfarin, CHF, osteoporosis, HTN, HLD, and hypothyroidism presented to [facility] for evaluation of shortness of breath and generalized weakness. States these symptoms have been ongoing since November, but noticed a significant change after her cardioversion yesterday. She was admitted to med/tele for evaluation of shortness of breath and generalized weakness possibly due to persistent atrial w/ poor rate control. However since how rates are well-controlled and she has improved clinically and medically, we feel comfortable with her discharge today. #shortness of breath/generalized weakness #atrial fibrillation, heart failure with preserved ejection fraction Likely due to poorly rate controlled atrial fibrillation, successfully cardioverted on 01/18/25 - rate control with metoprolol succinate 75mg - continue warfarin 7.5mg daily for anticoagulation as INR is currently therapeutic (supratherapeutic on admission) - followup with PCP this week or next; followup with cardiology and heart failure clinic as instructed #GALINA/hyperkalemia Improving from prior, however still want to ensure levels remain safe and stable - may continue home KCl supplement starting tomorrow 01/23 but discuss with primary care whether it can be decreased to once daily - obtain basic metabolic panel (ordered in hospital) for 2-3 days from now (nursing will print out order) #UTI - urinalysis with signs of possible infection but not having symptoms of UTI, urine culture grew E. coli susceptible to various antibiotics - continue antibiotics to complete initiated treatment: cefpodoxime 100mg BID for 3 days, starting tomorrow 01/23/25 to complete 5-day course of antibiotics started in hospital #HTN - chlorthalidone 50mg Wednesday and Wednesday - continue metoprolol as above #hypothyroidism - last TSH 01/08/25 - 1.35 - levothyroxine 112mcg each morning #osteoporosis - alendronate 70mg po q7d #anxiety/depression - home paroxetine 10mg - home hydroxyzine 10mg Total Time Total Time Spent Total Time Spent (In Minutes): per attending attestation Discharge Plan Discharge Items Patient Disposition: Home - Self-Care Reason For Visit: SHORTNESS OF BREATH Discharge Diagnosis: uncontrolled atrial fibrillation, CHF exacerbation Condition on Discharge: Fair Activity: Per Instructions section Non-emergency contact: Primary Care Provider Call non-emergency contact if: your symptoms worsen and your pain is not controlled Follow-up/Referrals: Aarti Hall MD [Primary Care Provider] - 02/01/25 11:30 am Pattie Morocoh PA-C [Physician [employer] Fore[employer]ics Analyst] - (01/24/25 @ 10:30: Echo 01/29/25 @ 10:00 Cardiology appointment with Aliyah Morocho 02/14/25 @ 11:00 post cardioversion appointment with Greer BULLARD) Diet: Regular and Heart Healthy Ambulatory Orders: Basic Metabolic Panel (Routine) Timeframe: 3 Days Location: Determined by Patient Ordered By: Onofre Thao Attending Provider Instructions: You were admitted for evaluation of shortness of breath and generalized weakness possibly due to persistent atrial fibrillation with poor rate control. We have increased your metoprolol to help control your heart rate which was likely contributing to your worsening symptoms. Due to your clinical improvement of shortness of breath and weakness, we feel comfortable with your discharge today. Please follow up with your primary care physician this week if possible, otherwise next week. #shortness of breath/generalized weakness #atrial fibrillation, heart failure with preserved ejection fraction Likely due to poorly rate controlled atrial fibrillation, successfully cardioverted on 01/18/25 - rate control with metoprolol succinate 75mg - continue warfarin 7.5mg daily for stroke prophylaxis as INR is currently therapeutic (supratherapeutic on admission) - followup with PCP this week or next; followup with cardiology and heart failure clinic as instructed #GALINA/hyperkalemia Improving from prior, however still want to ensure levels remain safe and stable - may continue home KCl supplement starting tomorrow 01/23 but discuss with primary care whether it can be decreased to once daily - obtain basic metabolic panel (ordered in hospital) for 2-3 days from now (nursing will print out order) #UTI - urinalysis with signs of possible infection but not having symptoms of UTI, urine culture grew E. coli susceptible to various antibiotics - continue antibiotics to complete initiated treatment: cefpodoxime 100mg BID for 3 days, starting tomorrow 01/23/25 to complete 5-day course of antibiotics started in hospital #Hypertension (high blood pressure) - chlorthalidone 50mg Wednesday and Wednesday - continue metoprolol as above #hypothyroidism - last TSH 01/08/25 - 1.35 - levothyroxine 112mcg each morning #osteoporosis - alendronate 70mg po q7d #anxiety/depression - paroxetine 10mg - hydroxyzine 10mg Pending Studies at Discharge: No Stand-Alone Forms: My [facility] Custom Coup, Smoking Cessation Medications and DC Order Prescriptions: New metoprolol succinate 25 mg Tablet Extended Release 24 Hr 75 mg PO DAILY 30 Days Qty: 90 0RF cefpodoxime 100 mg tablet 100 mg PO BID Qty: 6 0RF Rx Instructions: must administer with a meal/food: take with breakfast and dinner starting 01/23/25, only 3 days to complete 5 days of total antibiotics (started in hospital) Continued melatonin 10 mg capsule 10 mg PO HS Qty: 90 1RF warfarin 2.5 mg tablet 2.5 mg PO .COMPLEX Qty: 36 0RF Hold Instructions: Home Medication placed on hold at Doctor's office Protocol: Dose Management Condition: Wednesday Dose/Route: 10 mg Instruction: 1 x 2.5 mg tablet, 1 x 7.5 mg tablet Condition: Wednesday Dose/Route: 7.5 mg Instruction: 1 x 7.5 mg tablet Condition: Wednesday Dose/Route: 7.5 mg Instruction: 1 x 7.5 mg tablet Condition: Wednesday Dose/Route: 7.5 mg Instruction: 1 x 7.5 mg tablet Condition: Dose/Route: 7.5 mg Instruction: 1 x 7.5 mg tablet Condition: Wednesday Dose/Route: 10 mg Instruction: 1 x 2.5 mg tablet, 1 x 7.5 mg tablet Condition: Wednesday Dose/Route: 7.5 mg Instruction: 1 x 7.5 mg tablet Protocol Text: Adjustment Start Date: Wednesday11/15/24 INR Value: 1.3 INR Date: 11/13/24 Recheck Date: 12/15/24 Rx Instructions: Wednesday (along with 7.5 mg pill). warfarin 7.5 mg tablet 7.5 mg PO DAILY Qty: 90 5RF Protocol: Dose Management Condition: Wednesday Dose/Route: 10 mg Instruction: 1 x 2.5 mg tablet, 1 x 7.5 mg tablet Condition: Wednesday Dose/Route: 7.5 mg Instruction: 1 x 7.5 mg tablet Condition: Wednesday Dose/Route: 7.5 mg Instruction: 1 x 7.5 mg tablet Condition: Wednesday Dose/Route: 7.5 mg Instruction: 1 x 7.5 mg tablet Condition: Dose/Route: 7.5 mg Instruction: 1 x 7.5 mg tablet Condition: Wednesday Dose/Route: 10 mg Instruction: 1 x 2.5 mg tablet, 1 x 7.5 mg tablet Condition: Wednesday Dose/Route: 7.5 mg Instruction: 1 x 7.5 mg tablet Protocol Text: Adjustment Start Date: Wednesday11/15/24 INR Value: 1.3 INR Date: 11/13/24 Recheck Date: 12/15/24 alendronate 70 mg tablet 70 mg PO Q7D Qty: 12 1RF Rx Instructions: On Wednesday furosemide 20 mg tablet 20 mg PO DAILY Qty: 7 0RF chlorthalidone 50 mg tablet 50 mg PO 2XWK Qty: 30 1RF Rx Instructions: On Wednesday and Wednesday potassium chloride 20 mEq tablet extended release 40 meq PO BID Qty: 360 1RF ferrous sulfate 325 mg (65 mg iron) tablet 325 mg PO QAM hydroxyzine HCl 10 mg tablet 10 mg PO HS PRN (Reason: insomnia) Qty: 30 1RF cholecalciferol (vitamin D3) [Vitamin D3] 25 mcg (1,000 unit) Capsule 25 mcg PO QAM cyanocobalamin (vitamin B-12) [Vitamin B-12] 5,000 mcg Tablet, Sublingual 5,000 mcg SUBLINGUAL QAM paroxetine HCl 10 mg tablet 10 mg PO QAM levothyroxine 112 mcg tablet 112 mcg PO QAM Discontinued metoprolol succinate 50 mg tablet extended release 24 hr 50 mg PO DAILY Qty: 30 2RF Discharge Orders: Discharge Order (Routine); Ordered 01/22/25 Ordered By: Onofre Walker/Other Patient Handouts: AFib Preventing Stroke, AFib Admission Data Admit Date/Time: 01/19/25 18:18 Attending Provider: Junaid Courtney Admit Provider: Marisol Mccoy Primary Care Provider: Aarti Hall Other Providers: Thom Castano Other Interventions: Discharge Summary Assessment (RN) Last Done: 01/22/25 13:47 Supervising Physician Co-Signing Physician Notes Resident Physician Supervision Note: I personally examined the patient and verified all chilel points of history and exam, discussed case, and agree with decision making with Dr. Hi Acute on chronic HFrEF due to persistent atrial fibrillation with RVR I discussed the case with the resident and agree with the findings and plan as documented in the note. Any exceptions or clarifications are listed here: None Patient doing well agreeable to going home understands short-term course of antibiotics for possible urinary tract infection present on admission. Will fol low-up with cardiology as with her recent cardioversion. Patient is in unlabored respirations and appears to be in no distress for discharge Documented By: Junaid Courtney MD Resident Activity Tracking Resident Involvement: Resident Care Provided Care Provided: Adult Hospital Medicine
[2025-01-22 13:50] VITALS: BP 112/70
[2025-01-22] MEDS: POTASSIUM CHLORIDE 10 MEQ TABCR PO STA (13:56)
[2025-01-22 15:54] VITALS: PULSE 105
--- NOTE | 2025-01-22 17:14 | Billing Data ---
Date of Service January 22, 2025 Coding Level of Care Code 99272 IN/OBS DISCH 30 MIN/LESS
--- NOTE | 2025-01-25 10:36 | Billing Data ---
Date of Service January 25, 2025 Coding Level of Care Code 44715 INT INP/OBS CARE
--- NOTE | 2025-01-25 10:36 | Billing Data ---
Date of Service January 21, 2025 Coding Level of Care Code 65912 SUB INP/OBS CARE
--- NOTE | 2025-01-25 10:36 | Billing Data ---
Date of Service January 25, 2025 Coding Level of Care Code 95930 SUB INP/OBS CARE MIN
== END 2025-01-22 17:30 | disposition home or self-care (01) | DRG 291 ==
LOC: ED 14:11 → SUATTDRO 18:18 → 2N 18:18